=== PATIENT | female | born 2005 | race Two or more races ===

== ENCOUNTER 2025-01-29 16:42 | Emergency (ER) | payer MEDICAID, SELFPAY ==
[2025-01-29 16:53] VITALS: BP 112/72; PULSE 71; RESP 18; TEMP 37.3; O2SAT 100
[2025-01-29 16:56] VITALS: BMI 17.9
--- NOTE | 2025-01-29 17:12 | EDNOTE_ITS ---
ED OB Contraction Preg RMI/HPI General Chief complaint: Vaginal Bleeding Stated complaint: 7 WKS AND SPOTTING Time Seen by Provider: 01/29/25 16:47 Arrival date/time: 01/29/25 16:42 RME / HPI RME / HPI Narrative: 19-year-old female patient 1 para 0, came in for evaluation regarding vaginal spotting. Patient noticed vaginal spotting since early today severity mild. Today she only changed 1 pad. Denies any pelvic pain vomiting or other complaints. No medications taken prior to arrival. Denies any trauma or fall denies any fever denies any dysuria. Patient saw her BUILDER OPERATOR yesterday. She was told that she is 7 weeks Related Data Allergies Allergy/AdvReac Type Severity Reaction Status Date / Time No Known Allergies Allergy Verified 01/29/25 16:44 Review of Systems Review of Systems Narrative Review of Systems: Review of system reviewed and within normal limits except mentioned in HPI ED Exam Narrative Physical exam: VITAL SIGNS: Reviewed. GENERAL APPEARANCE: Alert and interactive, follows commands, no acute distress, HEAD AND FACE: Non-traumatic. ENT: PERRL, pink conjunctivitis, eyelid no trauma, Mucous membrane moist. NECK: Supple, nontender, no nuchal rigidity. CHEST: No tenderness, no crepitus, no paradoxical movement, no retractions. LUNGS: Clear, well ventilated, symmetric, no rales, no wheezing, no ronchi, no stridor, good breath sounds bilaterally. HEART: Regular rate, regular rhythm, no murmur, no gallops. ABDOMEN: Soft, positive bowel sounds, nondistended, no guarding, nontender, no rebound, no masses, RECTAL: Deferred. GENITAL: Deferred. NEUROLOGICAL: Gross motor function intact sensory function intact, Appropriate for age. MUSCULOSKELETAL: low back nontender, full range of motion. EXTREMITIES: Nontender, full range of motion. SKIN: Color pink, dry, no rash, no lacerations, no abrasions, no contusions. LYMPHATICS: Deferred. Course Quality Measures none Orders Category Date Time Status US OB <= 14 weeks fetus Stat Exams 01/29/25 17:12 Completed ABO/RH Type Stat Lab 01/29/25 17:25 Completed Basic Metabolic Panel Stat Lab 01/29/25 17:25 Completed Beta HCG,Quantitative Stat Lab 01/29/25 17:25 Completed CBC Stat Lab 01/29/25 17:25 Completed Path Review Blood Smear Stat Lab 01/29/25 17:25 Completed Urinalysis Stat Lab 01/29/25 17:30 Completed Vital Signs Vital signs: Vital Signs Temperature 99.1 F 01/29/25 16:53 Pulse Rate 71 01/29/25 16:53 Respiratory Rate 18 01/29/25 16:53 Blood Pressure 112/72 01/29/25 16:53 Pulse Oximetry (%) 100 01/29/25 16:53 Oxygen Delivery Method Room Air 01/29/25 16:53 Vaginal Bleeding MDM Narrative [facility] Narrative: 19-year-old female patient 1 para 0, came in for evaluation regarding vaginal spotting. Patient noticed vaginal spotting since early today severity mild. Today she only changed 1 pad. Denies any pelvic pain vomiting or other complaints. No medications taken prior to arrival. Denies any trauma or fall denies any fever denies any dysuria. Patient saw her BUILDER OPERATOR yesterday. She was told that she is 7 weeks Laboratory workup is significant for anemia, patient's hemoglobin today was noted to be 8.3, hematocrit of 30.1. Urinalysis no UTI. Ultrasound of pr dave showed single live intrauterine gestation about 7 weeks gestation. Otherwise unremarkable. Results discussed with the patient and family. Patient appears nontoxic and hemodynamically stable. Patient discharged home and instructed to follow-up with BUILDER OPERATOR in 24 to 48 hours. Instructed to return to the emergency department immediately if worsening of symptoms Patient data External records reviewed:: None Clinical information provided by:: patient Social determinants that could affect healthcare access:: none Patient has the following chronic illnesses:: Plan How is presenting disease/condition affected by chronic disease/condition?: no chronic disease Evaluation data The following diagnostics were reviewed and interpreted by me:: lab results and radiology exam(s) Lab and/or radiology exams considered but not ordered:: None Interpretation Summary: See results in MDM Medications / Prescriptions Medications or Prescriptions considered but not ordered:: None Medication administrations:: None Consultations Consultation(s) initiated? (list below): No Diagnosis Vaginal Bleeding Differential Diagnosis: threatened , vaginal bleeding and other Most likely diagnosis given after review of the tests above:: Vaginal spotting, Admission Indicated Admission indicated?: not indicated Admission Request Was there a request for admission?: No Disposition Plan Disposition Plan: Discharge Discharge Attestation Discharge Attestation: The patient and all family members were given an opportunity to ask questions and understood the discharge instructions. Discharge instructions specifically effects, indications for sooner follow up or return to the emergency department, and the expected course of current diagnosis. Patient condition: Stable Discharge Plan Plan Patient Disposition: HOME (Self Care) Disposition Comment: Stable Prescriptions/Referrals Referrals: No Primary/Family,Physician [Primary Care Provider] - In 1 week Problem List Clinical Impression: Vaginal spotting, and not yet delivered in first trimester Patient/Caregiver Discharge Instructions Discharge Activity: activity as tolerated Education Materials: Your First Trimester ... Additional Instructions: Thank you for the opportunity for serving you today. You are stable for discharged . You are advised to: Follow-up with your PCP in 1 to 2 days Return to ED for worsening of symptoms Increase oral fluids Pelvic rest no sex for 1 week or until cleared by BUILDER OPERATOR Print Language: Spanish Stand Alone Forms: Mayra Award Info., Patient Portal Info Letter [email or web address] Supervising Physician WILLY Supervising Physician: MD Heber
--- NOTE | 2025-01-29 17:12 | XR_ITS ---
Examination: Complete OB ultrasound, less than 14 weeks, transabdominal Date and time of exam: January 29, 2025 1735 hrs. Indications: Vaginal bleeding and pelvic cramping beginning one day ago Technique: Obstetrical ultrasound images less than 14 weeks performed via transabdominal imaging Findings: A normal shaped single intrauterine gestation is present in the uterus. CRL 0.8 cm corresponds to 7 week 0 day gestational age Cardiac motion 140 BPM Ultrasonographic survey of visible and placental structures unremarkable. Amniotic fluid volume appears appropriate for this estimated gestational age. Right ovary 3.1 cm arterial flow 18 mm follicular cyst Left ovary 2.10 cm arterial flow Impression: Viable intrauterine gestation 7 weeks 0 days .
[2025-01-29 17:39] LABS: Collection Type, Urine Clean Catch
[2025-01-29 17:44] LABS: Basophils # (Auto) 0.1 Thou/mm3 (0.0-0.2); Basophils % (Auto) 1 % (0-2.5); Eosinophils # (Auto) 0.1 Thou/mm3 (0.0-0.5); Eosinophils % (Auto) 1 % (0-10); Hematocrit 30.1 % (36.0-46.0); Immature Granulocytes % (Auto) 0 % (0-0); Immature Granulocytes Auto 0.02 Thou/mm3 (0.00-0.00); Lymphocytes % (Auto) 24 % (10-50); Mean Corpuscular HGB Conc 27.6 g/dl (31.0-37.0); Mean Corpuscular Hemoglobin 17.6 pg (25.0-35.0); Mean Corpuscular Volume 64 fL (80-100); Monocytes # (Auto) 0.8 Thou/mm3 (0.0-0.8); Monocytes % (Auto) 9 % (0-12); Neutrophils # (Auto) 5.5 Thou/mm3 (1.8-7.7); Neutrophils % (Auto) 66 % (37-80); Nucleated Red Blood Cell % 0 /100 WBC (0); Platelet Count 259 Thou/mm3 (140-440); RDW Standard Deviation 42.2 fL (36.4-46.3); Red Blood Count 4.71 Miln/mm3 (4.00-5.20); White Blood Count 8.5 Thou/mm3 (4.5-11.0)
[2025-01-29 17:46] LABS: Hemoglobin 8.3 g/dL (12.0-16.0)
[2025-01-29 17:49] LABS: Amorphous Crystals,Urine Present (Absent); Bilirubin,Urine Negative (Negative); Blood,Urine Negative (Negative); Clarity,Urine Turbid (Clear/Hazy); Color,Urine Lt-Yellow (Lt Yel-Yel); Glucose, Urine Negative (Negative); Ketones,Urine Negative (Negative); Leukocyte Esterase,Urine Positive (Negative); Nitrite,Urine Negative (Negative); Protein,Urine Negative (Neg - Trace); RBC,Urine 4 /hpf (0-3); Squamous Epithelial Cell,Urine 5 /hpf (0-5); Urobilinogen,Urine Negative mg/dL (0.0-1.0); WBC,Urine 2 /hpf (0-5)
[2025-01-29 17:58] LABS: Anion Gap 8 (7-16); BUN/Creatinine Ratio 18 Ratio (12-20); Blood Urea Nitrogen 11 mg/dL (9-23); Calcium 9.7 mg/dL (8.3-10.6); Carbon Dioxide 21.9 mMol/L (20.0-31.0); Chloride 104 mMol/L (98-107); Creatinine (Component) 0.6 mg/dL (0.6-1.3); Estimated Creatinine Clearance 112.4 mL/min (>60); Glucose 84 mg/dL (74-106); Osmolality,Calculated 266 (275-295); Potassium 3.9 mMol/L (3.4-5.1); Sodium 134 mMol/L (136-145); eGFR > 60 See Note
[2025-01-29 18:43] LABS: Beta HCG,Quantitative 151452 mIU/mL (<5.0)
[2025-01-29 18:45] LABS: Path Review Blood Smear Sent to Pathologist
== END 2025-01-29 20:16 | disposition home or self-care (01) ==
PROVIDERS: Nurse Practitioner Family; Emergency Provider Emergency Medicine
DX: O20.9 Hemorrhage in early pregnancy, unspecified (principal); Z3A.01 Less than 8 weeks gestation of pregnancy
CPT/HCPCS: 36415; 76801; 80048; 81001; 84702; 85025; 86900; 86901; 99284